=== PATIENT | male | born 1960 | race Caucasian/White ===

== ENCOUNTER → 2016-08-04 | Outpatient (CLI) | payer OTHER ==
[2016-08-04 06:59] LABS: MEAN CORPUSCULAR HEMOGLOBIN 30.7 pg (27.0-33.0); MEAN CORPUSCULAR HGB CONC 34.9 g/dl (32.0-36.5); MEAN CORPUSCULAR VOLUME 87.9 fl (80.0-96.0); RED CELL DISTRIBUTION WIDTH 13.1 % (11.5-14.5); WHITE BLOOD COUNT 5.2 K/mm3 (4.0-10.0)
[2016-08-04 07:29] LABS: ALBUMIN 3.6 GM/DL (3.2-5.2); ALBUMIN/GLOBULIN RATIO 1.03 (1.00-1.93); ALKALINE PHOSPHATASE 66 U/L (45-117); ALT/SGPT 41 U/L (12-78); ANION GAP 6 MEQ/L (8-16); AST/SGOT 17 U/L (15-37); BILIRUBIN,TOTAL 0.6 MG/DL (0.2-1.0); BLOOD UREA NITROGEN 23 MG/DL (7-18); CALCIUM LEVEL 8.5 MG/DL (8.5-10.1); CARBON DIOXIDE LEVEL 28 MEQ/L (21-32); CHLORIDE LEVEL 108 MEQ/L (98-107); CHOLESTEROL LEVEL 174 MG/DL (<200); GLOMERULAR FILTRATION RATE > 60.0 (>56); GLUCOSE, FASTING 105 MG/DL (70-105); POTASSIUM SERUM 4.8 MEQ/L (3.5-5.1); SODIUM LEVEL 142 MEQ/L (136-145); TOTAL PROTEIN 7.1 GM/DL (6.4-8.2); TRIGLYCERIDES LEVEL 60 MG/DL (<150)
--- NOTE | 2016-08-04 07:37 | REP ---
Clinical: Hypertension. Technique: PA and lateral. Comparison: 11/15/2014. Findings: Mediastinum and cardiac silhouette are within normal limits and stable. Lung cotter are relatively clear without acute consolidation, effusion, or pneumothorax. Skeletal structures are intact and Impression: Stable chest x-ray. No acute cardiopulmonary process appreciated. Signed by Sabino Lemus MD 08/04/2016 07:29 A
--- NOTE | 2016-08-04 16:43 | ECGEPIP ---
Stationary ECG Study [facility] Test Date: 2016-08-04 Pat Name: ASHLEY URIBE Department: Room: - Gender: M Social Work Therapist: GABINO : 1960 Requested By: Dannielle Lui Order Number: [id number] Reading MD: Solitario Salguero Measurements Intervals [place] Rate: 51 P: 21 DC: 155 QRS: 71 QRSD: 106 T: 52 QT: 409 QTc: 378 Interpretive Statements SINUS BRADYCARDIA POSSIBLE ANTERIOR MYOCARDIAL INFARCTION, OF INDETERMINATE AGE. PROBABLY RELATED TO POOR R-WAVE PROGRESSION DUE TO LEAD PLACEMENT COMPARED TO THE LAST 3 TRACINGS IN THE SYSTEM, NO SIGNIFICANT CHANGES Electronically Signed On 08-04-2016 16:43:07 EDT by Solitario Salguero
[2016-08-08 00:06] LABS: Lyme Disease IgG/IgM Antibodie <0.91 ISR (0.00-0.90); Lyme Disease IgM Ab Quantitati <0.80 index (0.00-0.79)
== END ==
LOC: M LAB 06:20
PROVIDERS: ATTEND Family Medicine
DX: Z00.00 Encounter for general adult medical examination without abnormal findings (principal); I10 Essential (primary) hypertension

== ENCOUNTER 2016-12-08 23:43 | Emergency (ER) | payer OTHER ==
[~2016-12-08] VITALS: Ht 182.9 cm; Wt 109.1 kg
[2016-12-09] MEDS ORDERED: METO1TAB7
[2016-12-09] MEDS ORDERED: ATOR1TAB19
[2016-12-09] MEDS ORDERED: ESCI20TA
[2016-12-09] MEDS ORDERED: [UNRECOGNIZED DRUG - CODE]
[2016-12-09] MEDS ORDERED: PROP50TA3
[2016-12-09] MEDS ORDERED: PERCOCET 5MG/325MG TAB PO ONE (02:15)
[2016-12-09] MEDS ORDERED: KETOROLAC 30 MG/ML VIAL (J1885) IV ONE (02:15)
[2016-12-09] MEDS ORDERED: PERC5TAB12 PO (02:58)
[2016-12-09] MEDS ORDERED: VALI2TAB PO (02:59)
[2016-12-09 03:14] VITALS: BP 175/92
== END 2016-12-09 03:16 | disposition home or self-care (01) ==
LOC: M ED 23:43
DX: M62.838 Other muscle spasm (principal); I10 Essential (primary) hypertension; E07.9 Disorder of thyroid, unspecified; Z79.899 Other long term (current) drug therapy; Z88.0 Allergy status to penicillin; Z88.2 Allergy status to sulfonamides
CPT/HCPCS: 96374; 96375; 99283; J1885; J3360

== ENCOUNTER → 2016-12-10 | Outpatient (CLI) | payer OTHER ==
[~2016-12-10] MED LIST: ATOR1TAB19; ESCI20TA; METO1TAB7; PERC5TAB12 PO; PROP50TA3; VALI2TAB PO; [UNRECOGNIZED DRUG - CODE]
--- NOTE | 2016-12-10 12:10 | REP ---
CERVICAL SPINE, SEVEN VIEWS: HISTORY: Neck pain. There is no acute fracture. The C5-6 through C7-T1 intervertebral discs are decreased in height consistent with disc degeneration. Osteophytes are present on C3-7. There is narrowing of the C3-6 neural foramina secondary to uncinate process hypertrophy. There are 2 mm of anterior subluxation of C4 on 5 with flexion. This is not seen in neutral or extension radiographs. IMPRESSION: Degenerative change as described above. Signed by Emory Mcdonough MD 12/10/2016 12:16 P
== END ==
LOC: M RAD 10:37
PROVIDERS: ATTEND Family Medicine
DX: M50.30 Other cervical disc degeneration, unspecified cervical region (principal)

== ENCOUNTER → 2018-01-05 | Outpatient (CLI) | payer OTHER ==
[2018-01-05 10:19] LABS: HEMATOCRIT 42.4 % (42.0-52.0); HEMOGLOBIN 14.6 g/dl (13.5-17.5); MEAN CORPUSCULAR HEMOGLOBIN 30.4 pg (27.0-33.0); MEAN CORPUSCULAR HGB CONC 34.4 g/dl (32.0-36.5); MEAN CORPUSCULAR VOLUME 88.3 fl (80.0-96.0); PLATELET COUNT, AUTOMATED 229 10^3/uL (150-450); RED CELL DISTRIBUTION WIDTH 12.2 % (11.5-14.5); WHITE BLOOD COUNT 5.8 10^3/uL (4.0-10.0)
[2018-01-05 10:54] LABS: ALBUMIN 3.6 GM/DL (3.2-5.2); ALBUMIN/GLOBULIN RATIO 1.06 (1.00-1.93); ALKALINE PHOSPHATASE 64 U/L (45-117); ALT/SGPT 26 U/L (12-78); ANION GAP 3 MEQ/L (8-16); AST/SGOT 13 U/L (7-37); BILIRUBIN,TOTAL 0.9 MG/DL (0.2-1.0); BLOOD UREA NITROGEN 21 MG/DL (7-18); CALCIUM LEVEL 8.6 MG/DL (8.5-10.1); CARBON DIOXIDE LEVEL 31 MEQ/L (21-32); CHLORIDE LEVEL 107 MEQ/L (98-107); CHOLESTEROL LEVEL 199 MG/DL (<200); CHOLESTEROL RISK RATIO 3.491 (<5); GLOMERULAR FILTRATION RATE > 60.0 (>56); GLUCOSE, FASTING 87 MG/DL (70-100); HDL CHOLESTEROL 57 MG/DL (>40); LDL CHOLESTEROL 127 MG/DL (<100); NON-HDL-C 142 MG/DL; POTASSIUM SERUM 4.8 MEQ/L (3.5-5.1); PROSTATIC SPECIFIC AG MONITOR 1.54 NG/ML (< 4.0); SODIUM LEVEL 141 MEQ/L (136-145); TRIGLYCERIDES LEVEL 73 MG/DL (<150)
[2018-01-05 10:55] LABS: ESTIMATED AVERAGE GLUCOSE 111 MG/DL (60-110); HEMOGLOBIN A1c 5.5 %
[2018-01-06 09:58] LABS: TESTOSTERONE 499 NG/DL (241-827)
== END ==
LOC: M LAB 08:46
DX: R53.83 Other fatigue (principal); I10 Essential (primary) hypertension; E03.9 Hypothyroidism, unspecified
CPT/HCPCS: 84403

== ENCOUNTER → 2018-04-07 | Outpatient (CLI) | payer OTHER ==
--- NOTE | 2018-04-07 16:55 | REP ---
LEFT KNEE SERIES: Five views of the left knee are performed. There is no acute fracture or dislocation. There is moderate diffuse joint space narrowing, subchondral sclerosis, and spurring. Diffuse chondrocalcinosis is noted in the medial and lateral joint spaces. There is bilateral patellofemoral compartment narrowing with mild subchondral sclerosis and mild spurring of the lateral patella facet. There appear to be a few subcentimeter joint bodies at the posterior margin of the joint in the lateral view. There appears to be a small joint effusion. There is a chronically unfused ossicle at the anterior tibial tubercle which was seen on prior study of 11/29/2000. IMPRESSION: Moderate degenerative changes. I suspect a few subcentimeter joint bodies at the posterior margin of the joint. Small joint effusion. Electronically Signed by Sy Murray MD 04/07/2018 04:57 P
[2018-04-07 19:47] LABS: BASO % 0.5 % (0.0-1.0); EOS # 0.1 10^3/uL (0.0-0.50); EOS % 1.6 % (0.0-3.0); HEMATOCRIT 41.9 % (42.0-52.0); HEMOGLOBIN 14.2 g/dl (13.5-17.5); LYMPH # 2.3 10^3/uL (1.5-4.5); LYMPH % 27.4 % (24.0-44.0); MEAN CORPUSCULAR HEMOGLOBIN 30.6 pg (27.0-33.0); MEAN CORPUSCULAR HGB CONC 33.9 g/dl (32.0-36.5); MEAN CORPUSCULAR VOLUME 90.3 fl (80.0-96.0); MONO # 0.6 10^3/uL (0.0-0.8); MONO % 7.7 % (0.0-5.0); NEUTROPHILS # 5.1 10^3/uL (1.8-7.7); NEUTROPHILS % 62.6 % (36.0-66.0); PLATELET COUNT, AUTOMATED 244 10^3/uL (150-450); RED BLOOD COUNT 4.64 10^6/uL (4.30-6.10); WHITE BLOOD COUNT 8.2 10^3/uL (4.0-10.0)
[2018-04-07 19:58] LABS: ALBUMIN 4.2 GM/DL (3.2-5.2); ALT/SGPT 29 U/L (12-78); BILIRUBIN,TOTAL 0.9 MG/DL (0.2-1.0); BLOOD UREA NITROGEN 21 MG/DL (7-18); CALCIUM LEVEL 8.9 MG/DL (8.5-10.1); CARBON DIOXIDE LEVEL 28 MEQ/L (21-32); CHLORIDE LEVEL 105 MEQ/L (98-107); CREATININE FOR GFR 1.08 MG/DL (0.70-1.30); GLOMERULAR FILTRATION RATE > 60.0 (>56); GLUCOSE, FASTING 84 MG/DL (70-100); POTASSIUM SERUM 4.2 MEQ/L (3.5-5.1); SODIUM LEVEL 140 MEQ/L (136-145); TOTAL PROTEIN 7.6 GM/DL (6.4-8.2)
== END ==
LOC: M WUC 15:57
PROVIDERS: ATTEND Physician Assistant
DX: M17.12 Unilateral primary osteoarthritis, left knee (principal); T42.4X5A Adverse effect of benzodiazepines, initial encounter

== ENCOUNTER → 2018-06-22 | Outpatient (CLI) | payer OTHER ==
[2018-06-22 17:34] LABS: BLOOD UREA NITROGEN 23 MG/DL (7-18); C REACTIVE PROTEIN QUANTITATIV < 0.30 MG/DL (0.00-0.30); CALCIUM LEVEL 8.3 MG/DL (8.5-10.1); CARBON DIOXIDE LEVEL 28 MEQ/L (21-32); CHLORIDE LEVEL 106 MEQ/L (98-107); CPK CREATINE PHOSPHOKINASE 185 U/L (39-308); CREATININE FOR GFR 1.13 MG/DL (0.70-1.30); GLOMERULAR FILTRATION RATE > 60.0 (>56); GLUCOSE, FASTING 88 MG/DL (70-100); POTASSIUM SERUM 4.4 MEQ/L (3.5-5.1); SODIUM LEVEL 140 MEQ/L (136-145)
[2018-06-22 17:35] LABS: BASO % 0.3 % (0.0-1.0); EOS # 0.1 10^3/uL (0.0-0.50); EOS % 2.1 % (0.0-3.0); HEMATOCRIT 42.7 % (42.0-52.0); HEMOGLOBIN 14.7 g/dl (13.5-17.5); LYMPH # 1.4 10^3/uL (1.5-4.5); LYMPH % 25.2 % (24.0-44.0); MEAN CORPUSCULAR HGB CONC 34.4 g/dl (32.0-36.5); MEAN CORPUSCULAR VOLUME 90.1 fl (80.0-96.0); MONO # 0.5 10^3/uL (0.0-0.8); MONO % 8.7 % (0.0-5.0); NEUTROPHILS # 3.6 10^3/uL (1.8-7.7); NEUTROPHILS % 63.4 % (36.0-66.0); PLATELET COUNT, AUTOMATED 235 10^3/uL (150-450); RED BLOOD COUNT 4.74 10^6/uL (4.30-6.10); WHITE BLOOD COUNT 5.7 10^3/uL (4.0-10.0)
[2018-06-22 18:09] LABS: ERYTHROCYTE SEDIMENTATION RATE 5 mm/hr (0-20)
[2018-06-23 10:04] LABS: FOLATE 17.5 NG/ML; VITAMIN B12 LEVEL 337 PG/ML
[2018-06-25 00:59] LABS: Lyme Disease IgG/IgM Antibodie <0.91 ISR (0.00-0.90); Lyme Disease IgM Ab Quantitati <0.80 index (0.00-0.79)
== END ==
LOC: M WUC 08:56
PROVIDERS: ATTEND Physician Assistant
DX: M79.10 Myalgia, unspecified site (principal)

== ENCOUNTER 2019-07-18 07:00 | Emergency (ER) | payer OTHER ==
[~2019-07-18] VITALS: Ht 182.9 cm; Wt 115.6 kg
[2019-07-18 07:02] VITALS: BP 151/84
[2019-07-18] MEDS ORDERED: METO1TAB32 (07:24)
[2019-07-18] MEDS ORDERED: KEFL500C17 PO (07:52)
[2019-07-18] MEDS ORDERED: CEPHALEXIN 500 MG CAP PO ONE (08:00)
== END 2019-07-18 08:06 | disposition home or self-care (01) ==
LOC: M ED 07:00
DX: L03.114 Cellulitis of left upper limb (principal); Z88.0 Allergy status to penicillin; Z88.2 Allergy status to sulfonamides

== ENCOUNTER 2019-12-04 13:17 | Emergency (ER) | payer OTHER ==
[~2019-12-04] VITALS: Ht 182.9 cm; Wt 113.9 kg
[~2019-12-04 13:17] MED LIST changes: +KEFL500C17 PO; +METO1TAB32
[2019-12-04] MEDS ORDERED: IBUP-1022 (14:08)
[2019-12-04] MEDS ORDERED: DOXY100C37 PO (14:25)
[2019-12-04] MEDS ORDERED: BOOSTRIX/ADACEL VACCINE (DIPHTH/PERTUSS/ACELL/TETANUS) 0.5ML SYR IM ONE (14:30)
[2019-12-04] MEDS ORDERED: NEOSPORIN OINT 0.9 GM PKT TOP ONE (14:30)
[2019-12-04 14:38] VITALS: BP 141/78
== END 2019-12-04 14:43 | disposition home or self-care (01) ==
LOC: M ED 13:17
DX: S70.372A Other superficial bite of left thigh, initial encounter (principal); W54.0XXA Bitten by dog, initial encounter; Y92.9 Unspecified place or not applicable; Y99.0 Civilian activity done for income or pay; I10 Essential (primary) hypertension; E78.5 Hyperlipidemia, unspecified; E05.90 Thyrotoxicosis, unspecified without thyrotoxic crisis or storm; F33.9 Major depressive disorder, recurrent, unspecified; Z88.0 Allergy status to penicillin; Z88.2 Allergy status to sulfonamides; Z79.899 Other long term (current) drug therapy

== ENCOUNTER 2022-05-24 10:40 | Emergency (ER) | payer OTHER ==
[~2022-05-24] VITALS: Ht 182.9 cm; Wt 109.6 kg
[~2022-05-24 10:40] MED LIST changes: +DOXY-443 PO; -ESCI20TA; +ESCI20TA16; +IBUP-1022
[2022-05-24] MEDS ORDERED: ACET650T61 PO (11:00)
[2022-05-24] MEDS ORDERED: MELO15TA28 (11:00)
[2022-05-24 12:14] VITALS: BP 182/94
[2022-05-24] MEDS ORDERED: IBUP-1022 PO (13:11)
== END 2022-05-24 13:30 | disposition home or self-care (01) ==
LOC: M ED 10:40
DX: S63.601A Unspecified sprain of right thumb, initial encounter (principal); W29.8XXA Contact with other powered hand tools and household machinery, initial encounter; E78.5 Hyperlipidemia, unspecified; I10 Essential (primary) hypertension; Z88.0 Allergy status to penicillin; Z88.2 Allergy status to sulfonamides; Z79.1 Long term (current) use of non-steroidal anti-inflammatories (NSAID); Z79.02 Long term (current) use of antithrombotics/antiplatelets; Z79.899 Other long term (current) drug therapy

== ENCOUNTER 2022-12-25 13:37 | Emergency (ER) | payer OTHER ==
[~2022-12-25] VITALS: Ht 182.9 cm; Wt 113.5 kg
[~2022-12-25 13:37] MED LIST changes: +ACET650T61 PO; +IBUP-1022 PO; +MELO15TA28
[2022-12-25] MEDS ORDERED: AMLO1TAB25 (13:52)
[2022-12-25] MEDS ORDERED: TAMS1CAP17 (13:52)
[2022-12-25] MEDS ORDERED: OMEP-173 (13:52)
[2022-12-25] MEDS ORDERED: [UNRECOGNIZED DRUG - CODE] (13:52)
[2022-12-25 16:34] LABS: BASO # 0.1 10^3/uL (0.0-0.2); BASO % 0.7 % (0.0-1.0); EOS # 0.1 10^3/uL (0.0-0.5); EOS % 1.3 % (0.0-3.0); HEMATOCRIT 38.7 % (42.0-52.0); HEMOGLOBIN 13.5 g/dl (13.5-17.5); LYMPH # 1.8 10^3/uL (1.5-5.0); LYMPH % 20.9 % (24.0-44.0); MEAN CORPUSCULAR HEMOGLOBIN 30.7 pg (27.0-33.0); MEAN CORPUSCULAR HGB CONC 34.9 g/dl (32.0-36.5); MONO # 0.8 10^3/uL (0.0-0.8); MONO % 8.9 % (2.0-8.0); NEUTROPHILS # 5.8 10^3/uL (1.5-8.5); PLATELET COUNT, AUTOMATED 247 10^3/uL (150-450); WHITE BLOOD COUNT 8.6 10^3/uL (4.0-10.0)
[2022-12-25 16:49] LABS: ERYTHROCYTE SEDIMENTATION RATE 43 mm/hr (0-20)
[2022-12-25 16:58] LABS: BLOOD UREA NITROGEN 24 MG/DL (9-23); CALCIUM LEVEL 9.2 MG/DL (8.3-10.6); CARBON DIOXIDE LEVEL 26 MMOL/L (20-31); CHLORIDE LEVEL 102 MMOL/L (98-107); CREATININE FOR GFR 1.07 MG/DL (0.70-1.30); GLOMERULAR FILTRATION RATE > 60.0 (>49); GLUCOSE, FASTING 85 MG/DL (74-106); POTASSIUM SERUM 4.2 MMOL/L (3.5-5.1); SODIUM LEVEL 138 MMOL/L (136-145)
[2022-12-25 17:03] LABS: URIC ACID 6.4 MG/DL (3.7-9.2)
[2022-12-25] MEDS ORDERED: KETOROLAC 30 MG/ML 1ML VIAL IV ONE (17:55)
[2022-12-25] MEDS ORDERED: DOXYCYCLINE HYCLATE 100MG TABLET PO ONE (17:55)
[2022-12-25] MEDS ORDERED: INDO50CA91 PO (17:59)
[2022-12-25] MEDS ORDERED: DOXY-443 PO (17:59)
[2022-12-25 18:03] VITALS: BP 165/81; TEMP 98.4; O2SAT 99
== END 2022-12-25 18:11 | disposition home or self-care (01) ==
LOC: M ED 13:37
DX: M17.11 Unilateral primary osteoarthritis, right knee (principal); M25.461 Effusion, right knee; R60.9 Edema, unspecified; I10 Essential (primary) hypertension; Z87.442 Personal history of urinary calculi; Z88.0 Allergy status to penicillin; Z79.1 Long term (current) use of non-steroidal anti-inflammatories (NSAID); Z79.02 Long term (current) use of antithrombotics/antiplatelets; Z79.891 Long term (current) use of opiate analgesic; Z79.899 Other long term (current) drug therapy
CPT/HCPCS: 73564; 73700; 80048; 84550; 85025; 85652; 86140; 86618; 93971; 96374; 99283; J1885

== ENCOUNTER → 2023-01-02 | Outpatient (REF) | payer OTHER ==
[~2023-01-02] MED LIST changes: +AMLO1TAB25; +INDO50CA91 PO; +OMEP-173; +TAMS1CAP17
== END ==
LOC: M LAB REF 12:48
PROVIDERS: ATTEND Internal Medicine
DX: M19.90 Unspecified osteoarthritis, unspecified site (principal)

== ENCOUNTER → 2023-01-04 | Outpatient (CLI) | payer OTHER | LOC: M PLARAD 10:35 | PROVIDERS: ATTEND Physician Assistant Surgical | DX: S87.01XA Crushing injury of right knee, initial encounter (principal); M25.461 Effusion, right knee; T14.8XXA Other injury of unspecified body region, initial encounter; X58.XXXA Exposure to other specified factors, initial encounter; Y92.9 Unspecified place or not applicable; Y93.9 Activity, unspecified; Y99.9 Unspecified external cause status ==

== ENCOUNTER → 2023-01-10 | Outpatient (REF) | payer OTHER ==
[2023-01-12 13:07] LABS: ANTINUCLEAR ANTIBODIES DIRECT Negative (Negative)
== END ==
LOC: M LAB REF 16:34
PROVIDERS: ATTEND Internal Medicine
DX: M17.11 Unilateral primary osteoarthritis, right knee (principal)

== ENCOUNTER 2023-07-05 09:06 | Emergency (ER) | payer OTHER ==
[~2023-07-05] VITALS: Ht 182.9 cm; Wt 112.8 kg
[~2023-07-05 09:06] MED LIST changes: -AMLO1TAB25; +AMLO1TAB25 PO; -ATOR1TAB19; +ATOR1TAB19 PO; +CELE1CAP99 PO; +LEXA1TAB2 PO; +LISI10TA22 PO; -OMEP-173; +OMEP-173 PO; -TAMS1CAP17; +TAMS1CAP17 PO
[2023-07-05] MEDS ORDERED: HOME MED LIST COMPLETE! XX SCH (11:55)
[2023-07-05] MEDS: traMADol 50 MG TAB PO ONE (12:14)
[2023-07-05] MEDS ORDERED: TRAM50TA2 PO (12:30)
[2023-07-05] MEDS ORDERED: ACET300T48 PO (12:33)
[2023-07-05 12:44] VITALS: BP 152/78; TEMP 97.7; O2SAT 99
== END 2023-07-05 12:58 | disposition home or self-care (01) ==
LOC: M ED 09:06
DX: S83.91XA Sprain of unspecified site of right knee, initial encounter (principal); S93.401A Sprain of unspecified ligament of right ankle, initial encounter; W19.XXXA Unspecified fall, initial encounter; M17.11 Unilateral primary osteoarthritis, right knee; M25.861 Other specified joint disorders, right knee; M25.461 Effusion, right knee; I10 Essential (primary) hypertension; E78.5 Hyperlipidemia, unspecified; N40.0 Benign prostatic hyperplasia without lower urinary tract symptoms; Z88.0 Allergy status to penicillin; Z79.811 Long term (current) use of aromatase inhibitors; Z79.02 Long term (current) use of antithrombotics/antiplatelets; Z79.83 Long term (current) use of bisphosphonates; Z79.899 Other long term (current) drug therapy; Z96.661 Presence of right artificial ankle joint; Y92.9 Unspecified place or not applicable; Y93.89 Activity, other specified; Y99.0 Civilian activity done for income or pay

== ENCOUNTER → 2023-09-24 | Outpatient (REF) | payer OTHER ==
[~2023-09-24] MED LIST changes: +ACET300T48 PO; +DOXY-323 PO; -DOXY-443 PO; +OXYB5TAB14 PO; +TRAM50TA2 PO
== END ==
LOC: M LAB REF 09:59
PROVIDERS: ATTEND Nurse Practitioner Family
DX: R19.7 Diarrhea, unspecified (principal)

== ENCOUNTER → 2023-09-26 | Outpatient (REF) | payer OTHER | LOC: M LAB REF 10:50 | PROVIDERS: ATTEND Nurse Practitioner Family | DX: R19.7 Diarrhea, unspecified (principal) ==

== ENCOUNTER → 2023-09-27 | Day surgery (SDC) | payer OTHER ==
[~2023-09-27] VITALS: Ht 182.9 cm; Wt 111.1 kg
[~2023-09-27] MED LIST changes: +LIDOCAINE 2% 100MG/5ML SDV (FOR ANES.) As Ordered ONE; +NS 1,000 ML IV ONE; +propofoL 200 MG/20 ML VIAL As Ordered ONE
== END | disposition home or self-care (01) ==
LOC: M OPP 15:10
PROVIDERS: ATTEND Internal Medicine Gastroenterology
DX: K63.5 Polyp of colon (principal); K62.5 Hemorrhage of anus and rectum; R19.7 Diarrhea, unspecified; I10 Essential (primary) hypertension; E05.90 Thyrotoxicosis, unspecified without thyrotoxic crisis or storm; E78.00 Pure hypercholesterolemia, unspecified; F17.220 Nicotine dependence, chewing tobacco, uncomplicated; Z79.02 Long term (current) use of antithrombotics/antiplatelets; Z79.1 Long term (current) use of non-steroidal anti-inflammatories (NSAID); Z79.83 Long term (current) use of bisphosphonates; Z79.899 Other long term (current) drug therapy; Z88.0 Allergy status to penicillin

== ENCOUNTER → 2023-11-05 | Outpatient (REF) ==
[~2023-11-05] MED LIST changes: -LIDOCAINE 2% 100MG/5ML SDV (FOR ANES.) As Ordered ONE; -NS 1,000 ML IV ONE; -propofoL 200 MG/20 ML VIAL As Ordered ONE
== END ==
LOC: M PLAIMG 14:09
PROVIDERS: ATTEND Internal Medicine
DX: R52 Pain, unspecified (principal)

== ENCOUNTER 2024-01-08 07:13 | Observation (INO) | payer OTHER ==
[~2024-01-08] VITALS: Ht 182.9 cm; Wt 113.9 kg
[~2024-01-08 07:13] MED LIST changes: -DOXY-323 PO; +DOXY-441 PO
[2024-01-08] MEDS ORDERED: ISOVUE-370 76% 100ML VIAL As Ordered ONE (08:00)
[2024-01-08 08:23] LABS: BASO % 0.6 % (0.0-1.0); EOS # 0.1 10^3/uL (0.0-0.5); EOS % 1.4 % (0.0-3.0); HEMATOCRIT 40.3 % (42.0-52.0); LYMPH % 20.4 % (24.0-44.0); MEAN CORPUSCULAR HEMOGLOBIN 31.4 pg (27.0-33.0); MEAN CORPUSCULAR HGB CONC 34.7 g/dl (32.0-36.5); MEAN CORPUSCULAR VOLUME 90.4 fl (80.0-96.0); MONO # 0.4 10^3/uL (0.0-0.8); MONO % 8.2 % (2.0-8.0); NEUTROPHILS # 3.5 10^3/uL (1.5-8.5); NEUTROPHILS % 69.2 % (36.0-66.0); PLATELET COUNT, AUTOMATED 232 10^3/uL (150-450); RED BLOOD COUNT 4.46 10^6/uL (4.30-6.10); WHITE BLOOD COUNT 5.1 10^3/uL (4.0-10.0)
[2024-01-08 08:37] LABS: INR 0.93; PARTIAL THROMBOPLASTIN TIME 31.7 SECONDS (24.8-34.2); PROTHROMBIN TIME 12.8 SECONDS (12.5-14.5)
[2024-01-08 08:44] LABS: LIPASE 23 U/L (12-53)
[2024-01-08 08:47] LABS: ALBUMIN 3.5 G/DL (3.2-5.2); ALKALINE PHOSPHATASE 56 U/L (40-129); ALT/SGPT 20 U/L (7.0-40); AST/SGOT 14 U/L (<34); BILIRUBIN,DIRECT 0.2 MG/DL (<0.4); BILIRUBIN,TOTAL 0.5 MG/DL (0.3-1.2); BLOOD UREA NITROGEN 24 MG/DL (9-23); CARBON DIOXIDE LEVEL 26 MMOL/L (20-31); CHLORIDE LEVEL 111 MMOL/L (98-107); CREATININE FOR GFR 1.16 MG/DL (0.70-1.30); GLOMERULAR FILTRATION RATE > 60.0 (>49); GLUCOSE, FASTING 101 MG/DL (74-106); POTASSIUM SERUM 4.5 MMOL/L (3.5-5.1); SODIUM LEVEL 141 MMOL/L (136-145); TOTAL PROTEIN 6.6 G/DL (5.7-8.2)
[2024-01-08 08:48] LABS: CK-MB VALUE MASS 1.3 NG/ML (<3.6)
[2024-01-08 08:52] LABS: FREE T4 1.41 NG/DL (0.89-1.76); THYROID STIMULATING HORMONE 1.208 uIU/ML (0.55-4.78)
[2024-01-08 08:58] LABS: CPK CREATINE PHOSPHOKINASE 141 U/L (46-171); MB/CK RELATIVE INDEX 0.92 (< OR =4)
[2024-01-08 09:28] LABS: CK-MB VALUE MASS 1.3 NG/ML (<3.6)
[2024-01-08 09:30] LABS: MB/CK RELATIVE INDEX 0.98 (< OR =4)
[2024-01-08] MEDS ORDERED: SODI88SP (12:11)
[2024-01-08] MEDS: ASPIRIN 81MG CHEW TABLET PO ONE (12:11)
[2024-01-08] MEDS ORDERED: FLON1SPR (12:11)
[2024-01-08] MEDS: NS 1,000 ML IV ONE (12:11)
[2024-01-08] MEDS ORDERED: HOME MED LIST COMPLETE! XX SCH (12:15)
[2024-01-08] MEDS: DIGOXIN INJ 0.5 MG/2 ML AMP IV STA (12:34)
[2024-01-08] MEDS: METOPROLOL TART 25 MG TABLET PO ONE (14:57)
[2024-01-08] MEDS: ESCITALOPRAM OXALATE 10 MG TAB (LEXAPRO) PO ONE (15:09)
[2024-01-08] MEDS: TAMSULOSIN 0.4 MG CAP PO ONE (15:09)
[2024-01-08] MEDS: OMEPRAZOLE 20MG CAP PO ONE (15:09)
[2024-01-08 17:05] VITALS: BP 121/78; TEMP 97.2; O2SAT 99
[2024-01-08] MEDS: RIVAROXABAN 20MG TAB (XARELTO) PO SCH (17:17)
[2024-01-08 20:25] VITALS: BP 120/78; TEMP 96.9; O2SAT 97
[2024-01-08] MEDS: METOPROLOL TART 25 MG TABLET PO SCH (20:27)
[2024-01-08] MEDS: ATORVASTATIN 20 MG TAB PO SCH (20:27)
[2024-01-08 23:20] VITALS: BP 103/69; TEMP 96.8; O2SAT 98
[2024-01-09 05:31] VITALS: BP 122/71; TEMP 96.8; O2SAT 99
[2024-01-09 06:08] LABS: BASO % 0.6 % (0.0-1.0); EOS # 0.2 10^3/uL (0.0-0.5); EOS % 3.3 % (0.0-3.0); HEMATOCRIT 41.3 % (42.0-52.0); LYMPH # 1.8 10^3/uL (1.5-5.0); LYMPH % 32.8 % (24.0-44.0); MEAN CORPUSCULAR HGB CONC 33.9 g/dl (32.0-36.5); MEAN CORPUSCULAR VOLUME 91.6 fl (80.0-96.0); MONO # 0.5 10^3/uL (0.0-0.8); MONO % 8.5 % (2.0-8.0); NEUTROPHILS % 54.4 % (36.0-66.0); PLATELET COUNT, AUTOMATED 247 10^3/uL (150-450); RED BLOOD COUNT 4.51 10^6/uL (4.30-6.10); WHITE BLOOD COUNT 5.4 10^3/uL (4.0-10.0)
[2024-01-09 06:29] LABS: CHOLESTEROL RISK RATIO 4.31 (<5); HDL CHOLESTEROL 43.1 MG/DL (>40); LDL CHOLESTEROL 117.9 MG/DL (<100); NON-HDL-C 142.9 MG/DL
[2024-01-09 06:46] LABS: ALBUMIN 3.3 G/DL (3.2-5.2); ALKALINE PHOSPHATASE 61 U/L (40-129); ALT/SGPT 18 U/L (7.0-40); AST/SGOT < 8 U/L (<34); BILIRUBIN,DIRECT 0.2 MG/DL (<0.4); BILIRUBIN,TOTAL 0.8 MG/DL (0.3-1.2); BLOOD UREA NITROGEN 19 MG/DL (9-23); CALCIUM LEVEL 9.2 MG/DL (8.3-10.6); CARBON DIOXIDE LEVEL 27 MMOL/L (20-31); CHLORIDE LEVEL 109 MMOL/L (98-107); GLOMERULAR FILTRATION RATE > 60.0 (>49); GLUCOSE, FASTING 91 MG/DL (74-106); POTASSIUM SERUM 4.8 MMOL/L (3.5-5.1); SODIUM LEVEL 139 MMOL/L (136-145); TOTAL PROTEIN 6.6 G/DL (5.7-8.2)
[2024-01-09 08:00] VITALS: BP 117/60; TEMP 97.8; O2SAT 98
[2024-01-09] MEDS ORDERED: METO1TAB87 PO (08:20)
[2024-01-09] MEDS ORDERED: SELF1KIT MC (08:20)
[2024-01-09] MEDS ORDERED: XARE20TA PO (08:20)
[2024-01-09] MEDS: TAMSULOSIN 0.4 MG CAP PO SCH (08:43)
[2024-01-09] MEDS: OMEPRAZOLE 20MG CAP PO SCH (08:43)
[2024-01-09 08:44] VITALS: BP 117/60
[2024-01-09] MEDS: ESCITALOPRAM OXALATE 10 MG TAB (LEXAPRO) PO SCH (08:44)
[2024-01-09] MEDS ORDERED: MIDO10TA PO (09:07)
[2024-01-09 12:00] VITALS: BP 122/80
[2024-01-09] MEDS: MIDODRINE 5 MG TAB PO SCH (12:02)
== END 2024-01-09 12:22 | disposition home or self-care (01) ==
LOC: M ED 07:13 → INTOOBSV 10:27 → M ED INP 10:27 → M ICU 17:04
PROVIDERS: ADMIT General Practice; ATTEND General Practice
DX: I48.91 Unspecified atrial fibrillation (principal); E66.9 Obesity, unspecified; G47.30 Sleep apnea, unspecified; R00.1 Bradycardia, unspecified; F17.220 Nicotine dependence, chewing tobacco, uncomplicated; I10 Essential (primary) hypertension; K21.9 Gastro-esophageal reflux disease without esophagitis; E78.00 Pure hypercholesterolemia, unspecified; Z79.899 Other long term (current) drug therapy
CPT/HCPCS: 36415; 70450; 70544; 70547; 70551; 71045; 71275; 80047; 80048; 80061; 80076; 82550; 82553; 83690; 83880; 84439; 84443; 84484; 85025; 85610; 85730; 86850; 86900; 86901; 87486; 87581; 87633; 87798; 93005; 93041; 93306; 94760; 96374; 96375; 97116; 97161; 99291; J1160; Q9967

== ENCOUNTER → 2024-04-21 | Outpatient (CLI) | payer OTHER ==
[~2024-04-21] MED LIST changes: +FLON1SPR; +METO1TAB87 PO; +MIDO10TA3 PO; +SELF1KIT MC; +SODI88SP; +XARE20TA PO
[2024-04-21 11:00] LABS: BASO % 0.5 % (0.0-1.0); EOS # 0.2 10^3/uL (0.0-0.5); EOS % 3.5 % (0.0-3.0); HEMATOCRIT 39.9 % (42.0-52.0); HEMOGLOBIN 13.6 g/dl (13.5-17.5); LYMPH # 1.5 10^3/uL (1.5-5.0); LYMPH % 25.2 % (24.0-44.0); MEAN CORPUSCULAR HEMOGLOBIN 31.3 pg (27.0-33.0); MEAN CORPUSCULAR HGB CONC 34.1 g/dl (32.0-36.5); MEAN CORPUSCULAR VOLUME 91.7 fl (80.0-96.0); MONO # 0.6 10^3/uL (0.0-0.8); MONO % 9.2 % (2.0-8.0); NEUTROPHILS # 3.6 10^3/uL (1.5-8.5); NEUTROPHILS % 61.3 % (36.0-66.0); PLATELET COUNT, AUTOMATED 220 10^3/uL (150-450); RED BLOOD COUNT 4.35 10^6/uL (4.30-6.10)
[2024-04-21 11:41] LABS: ALBUMIN 3.5 G/DL (3.2-5.2); ALKALINE PHOSPHATASE 67 U/L (40-129); ALT/SGPT 29 U/L (7.0-40); AST/SGOT 16 U/L (<34); BILIRUBIN,TOTAL 0.5 MG/DL (0.3-1.2); BLOOD UREA NITROGEN 20 MG/DL (9-23); CALCIUM LEVEL 8.6 MG/DL (8.3-10.6); CARBON DIOXIDE LEVEL 29 MMOL/L (20-31); CHLORIDE LEVEL 108 MMOL/L (98-107); CHOLESTEROL LEVEL 208 MG/DL (<200); CHOLESTEROL RISK RATIO 4.18 (<5); CREATININE FOR GFR 1.05 MG/DL (0.70-1.30); GLOMERULAR FILTRATION RATE > 60.0 (>49); GLUCOSE, FASTING 74 MG/DL (74-106); HDL CHOLESTEROL 49.7 MG/DL (>40); LDL CHOLESTEROL 139.9 MG/DL (<100); MAGNESIUM LEVEL 1.9 MG/DL (1.8-2.4); NON-HDL-C 158.3 MG/DL; POTASSIUM SERUM 4.4 MMOL/L (3.5-5.1); SODIUM LEVEL 142 MMOL/L (136-145); TOTAL PROTEIN 6.8 G/DL (5.7-8.2); TRIGLYCERIDES LEVEL 92 MG/DL (<150)
[2024-04-22 19:38] LABS: LDL DIRECT 140 mg/dL (<100)
== END ==
LOC: M WUC 08:22
PROVIDERS: ATTEND Internal Medicine Cardiovascular Disease
DX: I48.0 Paroxysmal atrial fibrillation (principal); E78.2 Mixed hyperlipidemia; R06.02 Shortness of breath; I50.9 Heart failure, unspecified

== ENCOUNTER → 2024-07-16 | Outpatient (REF) | payer OTHER ==
[2024-07-16 15:05] LABS: CALCIUM LEVEL 8.9 MG/DL (8.3-10.6); CREATININE FOR GFR 1.17 MG/DL (0.70-1.30); GLOMERULAR FILTRATION RATE 70.9 (>49); MAGNESIUM LEVEL 2.1 MG/DL (1.8-2.4); POTASSIUM SERUM 4.3 MMOL/L (3.5-5.1)
== END ==
LOC: M LABWUC 14:10
PROVIDERS: ATTEND Internal Medicine Cardiovascular Disease
DX: I42.6 Alcoholic cardiomyopathy (principal)

== ENCOUNTER → 2024-10-20 | Outpatient (REF) | payer OTHER ==
[2024-10-20 13:50] LABS: APPEARANCE, URINE CLEAR (CLEAR); BACTERIA, URINE AUTO NEGATIVE (NEGATIVE); BILIRUBIN, URINE AUTO NEGATIVE (NEGATIVE); BLOOD, URINE BLOOD 1+ (NEGATIVE); GLUCOSE, URINE (UA) AUTO 3+ mg/dL (NEGATIVE); KETONE, URINE AUTO NEGATIVE (NEGATIVE); LEUKOCYTE ESTERASE, URINE AUTO NEGATIVE (NEGATIVE); MUCUS, URINE SMALL (NEGATIVE); NITRITE, URINE AUTO NEGATIVE (NEGATIVE); PROTEIN, URINE AUTO NEGATIVE (NEGATIVE); RBC, URINE AUTO 1 /HPF (0-3); SPECIFIC GRAVITY URINE AUTO 1.022 (1.002-1.035); SQUAMOUS EPITHELIAL CELL UR AU 0 /HPF (0-6); UROBILINOGEN, URINE AUTO 0.2 mg/dL (0.0-2.0); WBC, URINE AUTO 0 /HPF (0-3)
== END ==
LOC: M SMT 12:49
PROVIDERS: ATTEND Nurse Practitioner Family
DX: R39.15 Urgency of urination (principal)

== ENCOUNTER → 2024-11-04 | Outpatient (REF) | payer OTHER ==
[~2024-11-04] MED LIST changes: -IBUP-1022; -IBUP-1022 PO; +IBUP600T42; +IBUP600T42 PO
== END ==
LOC: M LABWUC 12:22
PROVIDERS: ATTEND Nurse Practitioner Family
DX: Z12.5 Encounter for screening for malignant neoplasm of prostate (principal)
CPT/HCPCS: 36415; G0103

== ENCOUNTER → 2024-12-22 | Outpatient (CLI) | payer OTHER | LOC: M PLAIMG 14:09 | PROVIDERS: ATTEND Physician Assistant Surgical | DX: S80.01XA Contusion of right knee, initial encounter (principal); W18.30XA Fall on same level, unspecified, initial encounter; Y92.009 Unspecified place in unspecified non-institutional (private) residence as the place of occurrence of the external cause ==